=== PATIENT | female | born 1980 | race Caucasian/White ===

== ENCOUNTER 2017-06-13 04:42 | Emergency (ER) | payer MEDICAID, SELFPAY ==
[2017-06-13 04:50] VITALS: BP 153/99; PULSE 67; RESP 20; TEMP 36.8; O2SAT 94; BMI 23.8
--- NOTE | 2017-06-13 05:03 | XR_ITS ---
XR shoulder RT min 2V HISTORY: Shoulder pain and popping ITS.REASON: RIGHT SHOULDER DISLOCATION ORDERING PHYSICIAN: Kole Gan MD PATIENT AGE: 37 years COMPARISON: None FINDINGS: There is an anterior shoulder dislocation. No obvious fracture. No other significant anomalies. IMPRESSION: Anterior dislocation of the humeral head
[2017-06-13 05:50] VITALS: BP 153/101; PULSE 93; RESP 16; O2SAT 99
[2017-06-13 05:55] VITALS: BP 144/108; PULSE 89; RESP 20; O2SAT 97
[2017-06-13 06:00] VITALS: BP 136/94; PULSE 109; RESP 18; O2SAT 98
--- NOTE | 2017-06-13 06:04 | PC.NURSE ---
Mallory WILKINS ON WITH PHARMACY.
--- NOTE | 2017-06-13 06:06 | XR_ITS ---
XR shoulder RT 1V HISTORY: Follow-up dislocation reduction ITS.REASON: post reduction ORDERING PHYSICIAN: Kole Gan MD PATIENT AGE: 37 years COMPARISON: None FINDINGS: AP view shows interval reduction of the anterior dislocation. No obvious fracture. IMPRESSION: Reduced dislocation
--- NOTE | 2017-06-13 06:08 | [facility].EDGENADL ---
ED Disposition Clinical Impression: Anterior shoulder dislocation Qualifiers: Encounter type: initial encounter Laterality: right Qualified Code(s): S43.014A - Anterior dislocation of right humerus, initial encounter Disposition: Home, Self-Care Condition on Discharge: Good Instructions: DI for Shoulder Dislocation Additional Instructions: ice and wear sling as needed and see ortho for follow up Referrals: Ravin Leblanc MD [Physician] - - Critical Care Critical Care Time: No Attestation: On 06/13/17, the high probability of a clinically significant, sudden or life threatening deterioration of the following system(s) required my full and direct attention, intervention and personal management. The time I documented below is in addition to time spent performing reported procedures but includes the following listed in this critical care notation. Medical Decision Making - Medical Records Medical records reviewed: Yes: I reviewed the patient's medical records. Vital Signs: 06/13/17 04:50 06/13/17 05:50 06/13/17 05:55 Temperature 98.2 F Temperature Source Oral Pulse Rate [Left Brachial] 67 93 H 89 Respiratory Rate 20 16 20 Blood Pressure [Left Arm] 153/99 153/101 144/108 Blood Pressure Mean [Left Arm] 117 118 120 Blood Pressure Source [Left Arm] Automatic Cuff Automatic Cuff Automatic Cuff Blood Pressure Position [Left Arm] Sitting Sitting Sitting 02 Sat by Pulse Oximetry 94 L 99 97 Oxygen Delivery Method Room Air Nasal Cannula Nasal Cannula Oxygen Flow Rate (LPM) 2 2 06/13/17 06:00 06/13/17 06:14 Temperature Temperature Source Pulse Rate [Left Brachial] 109 H 84 Respiratory Rate 18 22 Blood Pressure [Left Arm] 136/94 132/98 Blood Pressure Mean [Left Arm] 108 109 Blood Pressure Source [Left Arm] Automatic Cuff Automatic Cuff Blood Pressure Position [Left Arm] Sitting Sitting 02 Sat by Pulse Oximetry 98 99 Oxygen Delivery Method Nasal Cannula Nasal Cannula Oxygen Flow Rate (LPM) 2 2 - Lab Data Lab results reviewed: Yes: I reviewed the patient's lab results. Orders (Tests/Meds): ED MEDICATIONS Discontinued Medications Generic Name Dose Route Start Last Admin Trade Name Freq PRN Reason Stop Dose Admin Ketorolac Tromethamine 30 mg 06/13/17 06:07 Toradol 30mg/Ml Vial IV 06/13/17 06:08 ONCE ONE Midazolam HCl 2 mg 06/13/17 05:50 06/13/17 05:53 Midazolam 2mg/2ml Vial IV 06/13/17 05:51 2 mg ONCE ONE Administration Midazolam HCl 2 mg 06/13/17 06:01 06/13/17 06:02 Midazolam 2mg/2ml Vial IV 06/13/17 06:02 2 mg ONCE ONE Administration Morphine Sulfate 4 mg 06/13/17 05:50 06/13/17 05:53 Morphine 4mg/Ml Syringe IV 06/13/17 05:51 4 mg ONCE ONE Administration Morphine Sulfate 2 mg 06/13/17 05:57 06/13/17 05:57 Morphine 2mg/Ml Syringe IV 06/13/17 05:58 2 mg ONCE ONE Administration Morphine Sulfate 2 mg 06/13/17 06:03 06/13/17 06:03 Morphine 2mg/Ml Syringe IV 06/13/17 06:04 2 mg ONCE ONE Administration Ondansetron HCl 4 mg 06/13/17 05:17 06/13/17 05:18 Zofran 4mg/2ml Vial IV 06/13/17 05:18 4 mg ONCE ONE Administration ORDERS Category Date Time Status Shoulder XR right 1 view [XR shoulder RT 1V] Stat Exams 06/13/17 06:06 Taken - Radiology Data #1 Image(s): Shoulder Image Reviewed: Yes I reviewed the patient's radiology image Preliminary Findings: Abnormal (ant shoulder reduction) - Fernandez Inquiry Pt receiving controlled substance: No General Adult HPI - General Chief complaint: PAIN Stated complaint: Right Shoulder Dislocated Time Seen by Provider: 06/13/17 06:08 Mode of Arrival: Family Vehicle Source of Information: Patient, Significant Other, Medical Record Limitations: No Limitations Description of Symptoms (Recalled from ER Triage Doc. by RN): dislocated right shoulder - History of Present Illness HPI narrative: hx of recurrent shoulder dislocation - this happened about 1 h
--- NOTE | 2017-06-13 06:11 | ED_ITS ---
ED Disposition Clinical Impression: Anterior shoulder dislocation Qualifiers: Encounter type: initial encounter Laterality: right Qualified Code(s): S43.014A - Anterior dislocation of right humerus, initial encounter Disposition: Home, Self-Care Condition on Discharge: Good Instructions: DI for Shoulder Dislocation Additional Instructions: ice and wear sling as needed and see ortho for follow up Referrals: Ravin Leblanc MD [Physician] - - Critical Care Critical Care Time: No Attestation: On 06/13/17, the high probability of a clinically significant, sudden or life threatening deterioration of the following system(s) required my full and direct attention, intervention and personal management. The time I documented below is in addition to time spent performing reported procedures but includes the following listed in this critical care notation. Medical Decision Making - Medical Records Medical records reviewed: Yes: I reviewed the patient's medical records. Vital Signs: 06/13/17 04:50 06/13/17 05:50 06/13/17 05:55 Temperature 98.2 F Temperature Source Oral Pulse Rate [Left Brachial] 67 93 H 89 Respiratory Rate 20 16 20 Blood Pressure [Left Arm] 153/99 153/101 144/108 Blood Pressure Mean [Left Arm] 117 118 120 Blood Pressure Source [Left Arm] Automatic Cuff Automatic Cuff Automatic Cuff Blood Pressure Position [Left Arm] Sitting Sitting Sitting 02 Sat by Pulse Oximetry 94 L 99 97 Oxygen Delivery Method Room Air Nasal Cannula Nasal Cannula Oxygen Flow Rate (LPM) 2 2 06/13/17 06:00 06/13/17 06:14 Temperature Temperature Source Pulse Rate [Left Brachial] 109 H 84 Respiratory Rate 18 22 Blood Pressure [Left Arm] 136/94 132/98 Blood Pressure Mean [Left Arm] 108 109 Blood Pressure Source [Left Arm] Automatic Cuff Automatic Cuff Blood Pressure Position [Left Arm] Sitting Sitting 02 Sat by Pulse Oximetry 98 99 Oxygen Delivery Method Nasal Cannula Nasal Cannula Oxygen Flow Rate (LPM) 2 2 - Lab Data Lab results reviewed: Yes: I reviewed the patient's lab results. Orders (Tests/Meds): ED MEDICATIONS Discontinued Medications Generic Name Dose Route Start Last Admin Trade Name Freq PRN Reason Stop Dose Admin Ketorolac Tromethamine 30 mg 06/13/17 06:07 Toradol 30mg/Ml Vial IV 06/13/17 06:08 ONCE ONE Midazolam HCl 2 mg 06/13/17 05:50 06/13/17 05:53 Midazolam 2mg/2ml Vial IV 06/13/17 05:51 2 mg ONCE ONE Administration Midazolam HCl 2 mg 06/13/17 06:01 06/13/17 06:02 Midazolam 2mg/2ml Vial IV 06/13/17 06:02 2 mg ONCE ONE Administration Morphine Sulfate 4 mg 06/13/17 05:50 06/13/17 05:53 Morphine 4mg/Ml Syringe IV 06/13/17 05:51 4 mg ONCE ONE Administration Morphine Sulfate 2 mg 06/13/17 05:57 06/13/17 05:57 Morphine 2mg/Ml Syringe IV 06/13/17 05:58 2 mg ONCE ONE Administration Morphine Sulfate 2 mg 06/13/17 06:03 06/13/17 06:03 Morphine 2mg/Ml Syringe IV 06/13/17 06:04 2 mg ONCE ONE Administration Ondansetron HCl 4 mg 06/13/17 05:17 06/13/17 05:18 Zofran 4mg/2ml Vial IV 06/13/17 05:18 4 mg ONCE ONE Administration ORDERS Category Date Time Stat
[2017-06-13 06:14] VITALS: BP 132/98; PULSE 84; RESP 22; O2SAT 99
[2017-06-13 06:56] VITALS: BP 114/74; PULSE 82; RESP 14; TEMP 37.1; O2SAT 98
== END 2017-06-13 06:56 | disposition home or self-care (01) ==
PROVIDERS: Emergency Provider Emergency Medicine
DX: S43.014A Anterior dislocation of right humerus, initial encounter (principal); Z88.0 Allergy status to penicillin
CPT/HCPCS: 23650; 73020; 73030; 96374; 96375; 99284; J2405